=== PATIENT | female | born 1960 | race Caucasian/White ===

== ENCOUNTER 2024-12-18 18:13 | Inpatient (IN) | payer OTHER ==
[2024-12-18] MEDS ORDERED: Naloxone 0.4 MG/ML SDV IVPUSH PRN (19:32)
[2024-12-18 20:23] LABS: PLATELET COUNT,PLT 236.0 K/uL (130-375); RED BLOOD CELL COUNT 4.6 M/uL (3.77-5.24); WHITE BLOOD CELL COUNT,WBC 11.0 K/uL (3.2-11.0)
[2024-12-18] MEDS: Ondansetron 4 MG/2 ML SDV IVPUSH PRN (20:27)
[2024-12-18] MEDS: Sodium Chloride 0.9% 10 ML Syringe FLUSH PRN (20:29)
[2024-12-18 20:39] LABS: BLOOD UREA NITROGEN,BUN 17.0 mg/dL (7-18); CARBON DIOXIDE,CO2 33.0 mmol/L (21-32); CHLORIDE,CL 99.0 mmol/L (100-108); CREATININE 0.6 mg/dL (0.6-1.0); EST CRCL DRUG DOSING (CG) 91.01 mL/min; ESTIMATED GFR 101.0 mL/min (>60); GLUCOSE RANDOM 166.0 mg/dL (74-106); SODIUM,NA 140.0 mmol/L (140-148)
[2024-12-18 20:41] LABS: POTASSIUM,K 2.9 mmol/L (3.6-5.2)
[2024-12-18] MEDS: Potassium Chloride 20 MEQ Tab.ER PO ONE (21:44)
[2024-12-19] MEDS ORDERED: Ondansetron 4 MG/2 ML SDV IVPUSH PRN (01:02)
[2024-12-19] MEDS: Ondansetron 4 MG/2 ML SDV IVPUSH ONE (01:16)
[2024-12-19] MEDS: Potassium Chloride 20 MEQ Tab.ER ONE (01:19)
[2024-12-19] MEDS: Sodium Chloride 0.9% 10 ML Syringe FLUSH PRN (01:29)
[2024-12-19] MEDS: Iopamidol 612 MG/ML 100 ML Bottle IV PRN (01:30)
[2024-12-19 01:35] LABS: APPEARANCE,URINE CLEAR (CLEAR); GLUCOSE,URINE NEGATIVE (NEGATIVE); OCCULT BLOOD,URINE NEGATIVE (NEGATIVE)
[2024-12-19 01:42] LABS: SQUAMOUS EPITHELIAL CELLS,UR FEW /HPF; UROTHELIAL CELLS,URINE NOT SEEN /HPF
[2024-12-19 02:50] LABS: POTASSIUM,K 3.1 mmol/L (3.6-5.2)
[2024-12-19] MEDS: Potassium Chloride 20 MEQ Tab.ER PO ONE ×2 (05:22→13:21)
[2024-12-19 07:14] LABS: A/G RATIO 1.0 (1.2-2.2); ALANINE AMINOTRANSFERASE,ALT 140 U/L (12-78); ASPARTATE AMNIOTRANSFERASE,AST 163 U/L (15-37); BILIRUBIN TOTAL 1.4 mg/dL (0.2-1.0); BLOOD UREA NITROGEN,BUN 18 mg/dL (7-18); CARBON DIOXIDE,CO2 31 mmol/L (21-32); CHLORIDE,CL 98 mmol/L (100-108); CREATININE 0.5 mg/dL (0.6-1.0); EST CRCL DRUG DOSING (CG) 109.21 mL/min; ESTIMATED GFR 106 mL/min (>60); GLUCOSE RANDOM 188 mg/dL (74-106); PROTEIN TOTAL,TP 7.1 g/dL (6.4-8.2); SODIUM,NA 139 mmol/L (140-148)
[2024-12-19] MEDS ORDERED: Ondansetron 4 MG Tab.DIS PO PRN (08:14)
[2024-12-19] MEDS ORDERED: Naloxone 0.4 MG/ML SDV IVPUSH PRN (08:14)
[2024-12-19] MEDS ORDERED: Insulin Lispro 100 Unit/ML 3 ML KwikPen SUBCUT SCH (08:14)
[2024-12-19] MEDS ORDERED: Non-Formulary Medication 1 Each (Metoprolol Succinate [Toprol Xl 100mg] 100 MG Tab.Er) PO SCH (09:00)
[2024-12-19] MEDS ORDERED: RESMETIROM PO SCH (09:00)
[2024-12-19] MEDS: Sennosides/Docusate Sodium 50-8.6 MG Tab PO PRN (13:06)
[2024-12-19] MEDS: REZDIFFRA PO SCH (14:33)
[2024-12-19] MEDS: METFORMIN ER 500MG TAB (PTOM) PO SCH (16:52)
[2024-12-20 06:31] LABS: BLOOD UREA NITROGEN,BUN 16.0 mg/dL (7-18); CARBON DIOXIDE,CO2 33.0 mmol/L (21-32); CHLORIDE,CL 102.0 mmol/L (100-108); CREATININE 0.7 mg/dL (0.6-1.0); EST CRCL DRUG DOSING (CG) 78.01 mL/min; ESTIMATED GFR 98.0 mL/min (>60); GLUCOSE RANDOM 133.0 mg/dL (74-106); POTASSIUM,K 3.4 mmol/L (3.6-5.2); SODIUM,NA 141.0 mmol/L (140-148)
[2024-12-20] MEDS: Potassium Chloride 20 MEQ Tab.ER PO ONE (07:39)
[2024-12-20] MEDS ORDERED: Non-Formulary Medication 1 Each (Metformin Hcl [Metformin Hcl Er] 500 MG Tab.Er.24h) PO SCH (09:00)
[2024-12-20] MEDS: Magnesium Hydroxide 400 MG/5 ML Susp 30 ML Cup PO PRN (13:56)
[2024-12-22] MEDS: Ondansetron 4 MG/2 ML SDV IV PRN (02:44)
[2024-12-22] MEDS ORDERED: Sodium Chloride 0.9% 10 ML Syringe IV PRN (10:29)
[2024-12-22] MEDS: Magnesium Citrate Solution 296 ML Bottle PO ONE ×2 (13:46→16:23)
[2024-12-23 09:03] VITALS: BP 139/74; PULSE 75
== END 2024-12-23 11:45 | disposition home or self-care (01) | DRG 84 ==
LOC: JP.ED 18:13 → JP.MS 12-19 06:43 → OBSVTOIN 12-21 15:36
PROVIDERS: ADMIT Nurse Practitioner; ATTEND Internal Medicine
DX: S06.5XAA Traumatic subdural hemorrhage with loss of consciousness status unknown, initial encounter (principal); S42.021A Displaced fracture of shaft of right clavicle, initial encounter for closed fracture; H54.7 Unspecified visual loss; I10 Essential (primary) hypertension; J45.909 Unspecified asthma, uncomplicated; E11.9 Type 2 diabetes mellitus without complications; E87.6 Hypokalemia; G43.909 Migraine, unspecified, not intractable, without status migrainosus; K59.03 Drug induced constipation; T40.605A Adverse effect of unspecified narcotics, initial encounter; S20.20XA Contusion of thorax, unspecified, initial encounter; E66.9 Obesity, unspecified; V86.75XA Person on outside of 3- or 4- wheeled all-terrain vehicle (ATV) injured in nontraffic accident, initial encounter; Y92.89 Other specified places as the place of occurrence of the external cause; Z88.5 Allergy status to narcotic agent; Z88.0 Allergy status to penicillin; Z88.2 Allergy status to sulfonamides; Z88.8 Allergy status to other drugs, medicaments and biological substances; Z79.52 Long term (current) use of systemic steroids; Z79.899 Other long term (current) drug therapy; Z79.84 Long term (current) use of oral hypoglycemic drugs; Z91.040 Latex allergy status; V86.69XA Passenger of other special all-terrain or other off-road motor vehicle injured in nontraffic accident, initial encounter; Z87.891 Personal history of nicotine dependence; Z68.32 Body mass index [BMI] 32.0-32.9, adult
CPT/HCPCS: 36415; 70450; 71250; 72125; 73000-26-RT; 73000-RT; 73030-26-RT; 73030-RT; 73060-26-RT; 73060-RT; 74177; 76377; 80048; 80053; 81001; 82947; 84132; 85027; 96374; 96375; 96376; 97165-GO; 97535-GO; 99223; 99232; 99238; 99285-25; A9270-GY; G0378; J1171; J2405; J7030; Q9967